=== PATIENT | female | born 1965 | race Caucasian/White ===

== ENCOUNTER → 2021-02-02 08:00 | Outpatient (CLI) | payer BC, SELFPAY ==
--- NOTE | ~2021-02-02 | US_ITS ---
EXAMINATION: US thyroid EXAM DATE: 02/02/2021 08:21 INDICATION: Goiter . TECHNIQUE: Multiple grayscale and Doppler images of the thyroid were obtained (by a technologist who performed the scan) and subsequently reviewed. Individual nodules and recommendations may be reporte d in accordance with TI-RADS system as designated by the 2017 ACR White Paper TI-RADS committee. Comp nisreenson is made to prior examination from 09/03/2019. FINDINGS: The right thyroid lobe measures 5.7 x 2.0 x 1.8 cm, the left measuring 5.1 x 1.4 x 1.5 cm. There is d iffusely heterogeneous thyroid echogenicity with mildly hypervascular parenchyma. There are 2 subcentimeter thyroid hypoechoic category TR 4 nodules which were measured, on the right 8 x 4 x 5 mm (previously 6 x 3 x 3 mm). The other is on the left and smaller. Another larger region was measured today which is isoechoic to the thyroid parenchyma, could just be a lobulation of normal thyroid parenchyma, but was measured at 1.1 x 0.9 x 1.0 cm, category TR 3 ellyn on. IMPRESSION: 1. Multinodular goiter; recommend one-year follow-up ultrasound. Reviewed, dictated and finalized at location D.
== END ==
PROVIDERS: PCP Nurse Practitioner Family; Visit Provider Internal Medicine Endocrinology, Diabetes & Metabolism
DX: E04.2 Nontoxic multinodular goiter (principal)
CPT/HCPCS: 76536

== ENCOUNTER → 2021-12-03 18:05 | Outpatient (CLI) | payer BC, SELFPAY ==
--- NOTE | ~2021-12-03 | DEXA_ITS ---
Bone Density Report Name: LALITA GLASS Age: 56 Sex: Female Ethnicity: White Date of : 1965 Indication: postmenopausal; screening for osteoporosis; Referring Provider: Minal, Kenisha Echavarria Study: Bone densitometry was performed. Exam Date: December 03, 2021 Accession number: [id number] Bone Density: Region BMD T-score Z-score Classification AP Spine (L1-L4) 1.094 0.4 1.5 Normal Femoral Neck (Left) 0.724 -1.1 -0.1 Osteopenia Total Hip (Left) 0.890 -0.4 0.3 Normal Femoral Neck (Right) 0.759 -0.8 0.3 Normal Total Hip (Right) 0.843 -0.8 -0.1 Normal Total Hip Mean 0.867 -0.6 0.1 Normal World Health Organization criteria for BMD impression classify patients as: Normal (T-score at or above -1.0), Osteopenia (T-score between -1.0 and -2.5), or Osteoporosis (T-score at or below -2.5). 10-year Fracture Risk(1): Major Osteoporotic Fracture 5.6% Hip Fracture 0.3% Reported Risk Factors: [place] (), Neck BMD=0.724, BMI=34.7 (1) FRAX(R) Version 3.08. Fracture probability calculated for an untreated patient. Fracture probability may be lower if the patient has received treatment. Clinical Information Provided by Patient: Patient maximum height was 62.0 Menopause Age: 41 No regular weight bearing exercise Does not regularly consume dairy products Drinks caffeinated beverages Onset of menses at age 11 Number of children 4 Impression: The patient has low bone mass, based on the Left Femoral Neck T-score. The patient has an estimated ten-year risk of hip fracture of 0.3% and an estimated ten-year risk of major fracture of 5.6%, based on the WHO FRAX algorithm. Discussion: BONE DENSITY IS LOW AT ONE OR MORE SKELETAL SITES. This patient's lowest T-score is low at one or more skeletal sites. It meets the World Health Organization's (WHO) criteria for ?low bone mass? (T-score between -1.0 and -2.5). The patient's 10-year risk of fracture as calculated by FRAX is less than the threshold where pharmacological therapy is recommended by the National Osteoporosis Foundation (NOF). However, all treatment decisions require clinical judgment and consideration of individual patient factors, including patient preferences, comorbidities, previous drug use, risk factors not captured in the FRAX model (e.g., frailty, falls, vitamin D deficiency, increased bone turnover, interval significant decline in bone density) and possible under or overestimation of fracture risk by FRAX. The patient should follow a healthful lifestyle (good nutrition with adequate calcium and vitamin D, and appropriate weight-bearing exercise). Follow-Up: Consider repeating this study in 2 to 3 years to reassess this patient's status, or sooner if there is some new clinical indication. Reported by: GIANCARLO on 12/03/2021 6:32:00 PM. __
== END ==
PROVIDERS: PCP Nurse Practitioner Family; Visit Provider Nurse Practitioner Family
DX: Z78.0 Asymptomatic menopausal state (principal); M85.852 Other specified disorders of bone density and structure, left thigh
CPT/HCPCS: 77080